=== PATIENT | female | born 1970 | race African-American/Black ===

== ENCOUNTER → 2020-09-10 | Outpatient (CLI) | payer OTHER | LOC: MHCPAIN 12:11 | DX: M47.815 Spondylosis without myelopathy or radiculopathy, thoracolumbar region (principal); M54.6 Pain in thoracic spine; M54.5 Low back pain; M48.062 Spinal stenosis, lumbar region with neurogenic claudication | CPT/HCPCS: G0463 ==

== ENCOUNTER → 2020-09-26 | Outpatient (CLI) | payer OTHER | LOC: MHCPAIN 10:58 | DX: M47.815 Spondylosis without myelopathy or radiculopathy, thoracolumbar region (principal); M47.816 Spondylosis without myelopathy or radiculopathy, lumbar region; M54.6 Pain in thoracic spine; M54.5 Low back pain | CPT/HCPCS: J1100; Q9967 ==

== ENCOUNTER → 2020-10-15 | Outpatient (CLI) | payer OTHER | LOC: MHCPAIN 15:01 | DX: M47.815 Spondylosis without myelopathy or radiculopathy, thoracolumbar region (principal); M54.6 Pain in thoracic spine; M54.5 Low back pain; M54.16 Radiculopathy, lumbar region | CPT/HCPCS: G0463 ==

== ENCOUNTER → 2020-11-06 | Outpatient (CLI) | payer OTHER | LOC: MHCPAIN 11:35 | DX: M47.816 Spondylosis without myelopathy or radiculopathy, lumbar region (principal); M54.5 Low back pain; M54.6 Pain in thoracic spine | CPT/HCPCS: G0463 ==

== ENCOUNTER → 2021-04-29 | Outpatient (CLI) | payer OTHER | LOC: MHCPAIN 13:07 | DX: M47.816 Spondylosis without myelopathy or radiculopathy, lumbar region (principal); M54.50 Low back pain, unspecified; M54.6 Pain in thoracic spine; M53.3 Sacrococcygeal disorders, not elsewhere classified | CPT/HCPCS: G0463 ==